=== PATIENT | male | born 1960 | race Hispanic/Latino ===

== ENCOUNTER 2021-09-28 11:29 | Emergency (ER) | payer MEDICARE ==
[2021-09-28] MEDS ORDERED: SODIUM CHLORIDE 0.9% 1000 ML 1,000 ML IV ONE (11:40)
--- NOTE | 2021-09-28 11:42 | Event Note ---
ED Screening Note ED Screening Note: co weakness and abd pain off insulin for 7 months This initial assessment/diagnostic orders/clinical plan/treatment(s) is/are subject to change based on patients health status, clinical progression and re- assessment by fellow clinical providers in the ED. Further treatment and workup at subsequent clinical providers discretion. Patient/guardian urged not to elope from the ED as their condition may be serious if not clinically assessed and managed. Initial orders include: ro dka infection acs
--- NOTE | 2021-09-28 12:10 | XRay Report ---
CHEST 1 VIEW INDICATION: weak. COMPARISON: None. FINDINGS: Support devices: None. Heart: Normal. Lungs/Pleura: No acute pulmonary or pleural findings. Healed posterior right upper rib fractures are noted. IMPRESSION: 1. No acute findings. Signer Name: Octavio Murillo MD Signed: 09/28/2021 12:06 PM Workstation Name: [id number]
[2021-09-28] MEDS ORDERED: ONDANSETRON 4 MG/2 ML INJ IV ONE (12:46)
[2021-09-28] MEDS ORDERED: fentaNYL 100 MCG/2 ML INJ IV ONE (12:46)
--- NOTE | 2021-09-28 12:51 | Emergency Department Report ---
HPI - General Chief Complaint: Hyperglycemia Time Seen by Provider: 09/28/21 12:35 - HPI HPI: Room 22 The patient is a 61-year-old male present with a chief complaint of abdominal pain back pain leg pain. Patient states he has had this pain for several years since he was diagnosed with cirrhosis. Patient is to nausea vomiting states his had difficulty eating because of his symptoms. Patient denies diarrhea or history of fever. Patient states he ran out of his insulin approximately 7 months ago has not had a refill. Patient admits to polyuria ED Past Medical Hx - Past Medical History Hx CVA: Yes (Residual left-sided weakness) Hx Diabetes: Yes Additional medical history: Cirrhosis - Surgical History Hx Cholecystectomy: Yes Additional Surgical History: Left hip replacement, left hand surgery - Family History Family history: no significant - Social History Smoking Status: Current Every Day Smoker (1/2 pack/day) Substance Use Type: None (Denies illicit drug use) - Medications Home Medications: Home Medications Medication Instructions Recorded Confirmed Last Taken Type HYDROcodone/APAP 5-325 [Holliday 1 - 2 each PO Q6HR PRN #10 tablet 09/28/21 Unknown Rx 5/325] Ondansetron [Zofran Oral Liq] 8 mg PO ONCE #20 oralsyr 09/28/21 Unknown Rx Pantoprazole Sodium [Protonix] 40 mg PO QDAY #30 09/28/21 Unknown Rx ED Review of Systems ROS: Stated complaint: ABDOMINAL PAIN/BODY PAIN Other details as noted in HPI Constitutional: denies: fever Eyes: denies: eye pain ENT: denies: throat pain Respiratory: no symptoms reported Cardiovascular: denies: chest pain Endocrine: increased urine Gastrointestinal: abdominal pain, nausea, vomiting. denies: diarrhea Genitourinary: denies: dysuria Musculoskeletal: back pain Neurological: denies: headache Physical Exam - Physical Exam Vital Signs: Vital Signs 09/28/21 09/28/21 11:38 11:55 Temperature 99 F Pulse Rate 70 Respiratory 16 Rate Blood Pressure 136/56 [Left] O2 Sat by Pulse 99 100 Oximetry Physical Exam: GENERAL: The patient is well-developed well-nourished male lying on stretcher not appearing to be in acute distress. [] HEENT: Normocephalic. Atraumatic. Extraocular motions are intact. Patient has moist mucous membranes. NECK: Supple. Trachea midline CHEST/LUNGS: Clear to auscultation. There is no respiratory distress noted. HEART/CARDIOVASCULAR: Regular. There is no tachycardia. There is no gallop rub or murmur. ABDOMEN: Abdomen is soft, with mild discomfort to palpation in the left lower quadrant, suprapubic and right lower quadrant. There is no rebound or guarding. Patient has normal bowel sounds. There is no abdominal distention. SKIN: There is no rash. There is no edema. There is no diaphoresis. NEURO: The patient is awake, alert, and oriented. The patient is cooperative. The patient has no focal neurologic deficits. The patient has normal speech. GCS 15 MUSCULOSKELETAL: There is no evidence of acute injury. ED Course Vital Signs 09/28/21 09/28/21 11:38 11:55 Temperature 99 F Pulse Rate 70 Respiratory 16 Rate Blood Pressure 136/56 [Left] O2 Sat by Pulse 99 100 Oximetry ED Medical Decision Making - Lab Data Result diagrams: 09/28/21 12:54 09/28/21 12:54 Laboratory Tests 09/28/21 09/28/21 09/28/21 12:54 12:54 12:54 WBC 5.9 RBC 3.75 Hgb 11.6 L Hct 33.8 L MCV 90 MCH 31 MCHC 34 RDW 15.6 H Plt Count 92 L Lymph % (Auto) 23.0 Delta % (Auto) 6.6 Eos % (Auto) 4.5 H Baso % (Auto) 0.8 Lymph # (Auto) 1.4 Delta # (Auto) 0.4 Eos # (Auto) 0.3 Baso # (Auto) 0.0 Seg Neutrophils % 65.1 Seg Neutrophils # 3.8 VBG pH Sodium 133 L Potassium 3.5 L Chloride 103.2 Carbon Dioxide 20 L Anion Gap 13 BUN 13 Creatinine 0.8 Estimated GFR > 60 BUN/Creatinine Ratio 16 Glucose 371 H Calcium 7.7 L Total Bilirubin 0.40 AST 57 H ALT 58 H Alkaline Phosphatase 160 H Troponin T < 0.010 Total Protein 6.6 Albumin 3.2 L Albumin/Globulin Ratio 0.9 Lipase 37 09/28/21 12:54 WBC RBC Hgb Hct MCV MCH MCHC RDW Plt Count Lymph % (Auto) Delta % (Auto) Eos % (Auto) Baso % (Auto) Lymph # (Auto) Delta # (Auto) Eos # (Auto) Baso # (Auto) Seg Neutrophils % Seg Neutrophils # VBG pH 7.396 Sodium Potassium Chloride Carbon Dioxide Anion Gap BUN Creatinine Estimated GFR BUN/Creatinine Ratio Glucose Calcium Total Bilirubin AST ALT Alkaline Phosphatase Troponin T Total Protein Albumin Albumin/Globulin Ratio Lipase - EKG Data -: EKG Interpreted by Me EKG shows normal: sinus rhythm Rate: normal - EKG Data When compared to previous EKG there are: previous EKG unavailable Interpretation: other (No ischemic changes seen) - Radiology Data Radiology results: report reviewed (Chest x-ray, CT abdomen pelvis), image reviewed (Chest x-ray, CT abdomen pelvis) interpreted by me: Chest x-ray-no definite focal infiltrates, no pneumothorax [address] [address] XRay Report Signed Patient: MOOK GATES MR#: [id number] : 1960 Acct:[id number] Age/Sex: 61 / M ADM Date: 09/28/21 Loc: ED Attending Dr: Ordering Physician: SURI CHAUDHARY Date of Service: 09/28/21 Procedure(s): XR chest 1V ap Accession Number(s): [id number] cc: SURI CHAUDHARY Fluoro Time In Minutes: CHEST 1 VIEW INDICATION: weak. COMPARISON: None. FINDINGS: Support devices: None. Heart: Normal. Lungs/Pleura: No acute pulmonary or pleural findings. Healed posterior right upper rib fractures are noted. IMPRESSION: 1. No acute findings. Signer Name: Octavio Murillo MD Signed: 09/28/2021 12:06 PM Workstation Name: [id number] Transcribed By: DINA Dictated By: Octavio Murillo MD Electronically Authenticated By: Octavio Murillo MD Signed Date/Time: 09/28/21 1206 DD/ 1205 TD/TT: [address] [address] Cat Scan Report Signed Patient: MOOK GATES MR#: [id number] : 1960 Acct:[id number] Age/Sex: 61 / M ADM Date: 09/28/21 Loc: ED Attending Dr: Ordering Physician: VALERY KENNEDY MD Date of Service: 09/28/21 Procedure(s): CT abdomen pelvis w con Accession Number(s): [id number] cc: VALERY KENNEDY MD CT ABDOMEN AND PELVIS WITH IV CONTRAST INDICATION: Lower abdominal pain OMNI 300 100 ML. COMPARISON: None available. TECHNIQUE: All CT scans at this facility use dose modulation, automated exposure control, iterative reconstruction or weight based dosing, when appropriate, to reduce radiation dose to as low as reasonably achievable. FINDINGS: Lung Bases: No significant abnormality. Skeletal System: No acute abnormality. ABDOMEN: Liver: The liver has a cirrhotic configuration. Branching hypodensity is seen within the anterior superior liver (coronal images 44-50). Gallbladder: Removed. Bile Ducts: No si gnificant abnormality. Adrenals: There is a 3.8 cm isodense left adrenal lesion. Right adrenal is unremarkable. Right Kidney: No significant abnormality. Left Kidney: No significant abnormality. Pancreas: No significant abnormality. Spleen: Splenomegaly. There are large perisplenic varices. Upper GI tract: No significant abnormality. Lymph Nodes: No significant adenopathy. Aorta: No significant abnormality. Additional Findings: There is a tiny fat-containing umbilical hernia. PELVIS: Colon: No significant abnormality. Urinary Bladder and Distal Ureters: Bladder is distended but otherwise unremarkable. Appendix: No significant abnormality. Lymph Nodes: No significant adenopathy. Additional Fi ndings: None. IMPRESSION: 1. No acute inflammatory process in the abdomen or pelvis. 2. Hepatic cirrhosis with splenomegaly and large perisplenic varices. No ascites. 3. Within the anterior superior liver there is branching hypodensity that is somewhat ill-defined. This is nonspecific but could be infiltrative lesion such as HCC. This could also be dilated vessels or bile ducts secondary to an occult lesion causing obstruction. 4. 3.8 cm left adrenal lesion. This is indeterminate. Given its size, surgical consultation should be considered. Signer Name: Octavio Murillo MD Signed: 09/28/2021 2:56 PM Workstation Name: [id number] Transcribed By: DINA Dictated By: Octavio Murillo MD Electronically Aut henticated By: Octavio Murillo MD Signed Date/Time: 09/28/21 1456 DD/ 1447 TD/TT: - Differential Diagnosis Chronic abdominal pain, pancreatitis, appendicitis, DKA Critical care attestation.: If time is entered above; I have spent that time in minutes in the direct care of this critically ill patient, excluding procedure time. ED Disposition Clinical Impression: Abdominal pain, Cirrhosis, Hyperglycemia Disposition: 01 HOME / SELF CARE / HOMELESS Is pt being admited?: No Does the pt Need Aspirin: No Condition: Stable Instructions: Abdominal Pain, Adult, [id number] Additional Instructions: Return to the emergency department should you develop worsening symptoms, inability to tolerate food or liquids, high fever or any other concerns Prescriptions: HYDROcodone/APAP 5-325 [Holliday 5/325] 1 - 2 each PO Q6HR PRN #10 tablet PRN Reason: Pain Pantoprazole Sodium [Protonix] 40 mg PO QDAY #30 Ondansetron [Zofran Oral Liq] 8 mg PO ONCE #20 oralsyr Referrals: ARIEL MIRELES MD [Staff Physician] - 3-5 Days (Dr. Mireles is a public policy analyst. Please follow-up with him for further evaluation of your liver) ELICIA GALAN MD [Staff Physician] - 3-5 Days (Dr. Galan is a primary physician. Please follow-up with him to be established as a patient) Time of Disposition: 15:09
[2021-09-28 13:26] LABS: Basophils % (Auto) 0.8 % (0.0-1.8); Eosinophils # (Auto) 0.3 K/mm3 (0.0-0.4); Eosinophils % (Auto) 4.5 % (0.0-4.3); Hematocrit 33.8 % (35.5-45.6); Hemoglobin 11.6 gm/dl (11.8-15.2); Lymphocytes # (Auto) 1.4 K/mm3 (1.2-5.4); Mean Corpuscular HGB Conc 34 % (32-34); Mean Corpuscular Volume 90 fl (84-94); Monocytes # (Auto) 0.4 K/mm3 (0.0-0.8); Monocytes % (Auto) 6.6 % (0.0-7.3); Red Blood Count 3.75 M/mm3 (3.65-5.03); Red Cell Distribution Width 15.6 % (13.2-15.2)
[2021-09-28 13:47] LABS: Alanine Aminotransferase 58 units/L (7-56); Albumin 3.2 g/dL (3.9-5); BUN/Creatinine Ratio 16; Blood Urea Nitrogen 13 mg/dL (9-20); Calcium 7.7 mg/dL (8.4-10.2); Hemolysis Index 4
[2021-09-28 14:07] LABS: Platelet Count 92 K/mm3 (140-440)
--- NOTE | 2021-09-28 15:01 | Cat Scan Report ---
CT ABDOMEN AND PELVIS WITH IV CONTRAST INDICATION: Lower abdominal pain OMNI 300 100 ML. COMPARISON: None available. TECHNIQUE: All CT scans at this facility use dose modulation, automated exposure control, iterative reconstructi on or weight based dosing, when appropriate, to reduce radiation dose to as low as reasonably achieva ble. FINDINGS: Lung Bases: No significant abnormality. Skeletal System: No acute abnormality. ABDOMEN: Liver: The liver has a cirrhotic configuration. Branching hypodensity is seen within the anterior sup erior liver (coronal images 44-50). Gallbladder: Removed. Bile Ducts: No significant abnormality. Adrenals: There is a 3.8 cm isodense left adrenal lesion. Right adrenal is unremarkable. Right Kidney: No significant abnormality. Left Kidney: No significant abnormality. Pancreas: No significant abnormality. Spleen: Splenomegaly. There are large perisplenic varices. Upper GI tract: No significant abnormality. Lymph Nodes: No significant adenopathy. Aorta: No significant abnormality. Additional Findings: There is a tiny fat-containing umbilical hernia. PELVIS: Colon: No significant abnormality. Urinary Bladder and Distal Ureters: Bladder is distended but otherwise unremarkable. Appendix: No significant abnormality. Lymph Nodes: No significant adenopathy. Additional Findings: None. IMPRESSION: 1. No acute inflammatory process in the abdomen or pelvis. 2. Hepatic cirrhosis with splenomegaly and large perisplenic varices. No ascites. 3. Within the anterior superior liver there is branching hypodensity that is somewhat ill-defined. Th is is nonspecific but could be infiltrative lesion such as HCC. This could also be dilated vessels or bile ducts secondary to an occult lesion causing obstruction. 4. 3.8 cm left adrenal lesion. This is indeterminate. Given its size, surgical consultation should be considered. Signer Name: Octavio Mruillo MD Signed: 09/28/2021 2:56 PM Workstation Name: [id number]
[2021-09-28 15:56] VITALS: BP 106/59
--- NOTE | 2021-09-29 10:36 | Electrocardiograph Report ---
[facility] Test Date: 2021-09-28 Test Time: 12:10:12 Pat Name: MOOK GATES Department: Room: Gender: M Supply Planner: SORAIDA : 1960 Requested By: SURI CHAUDHARY Order Number: [id number] Reading MD: Pj Maher Measurements Intervals [place] Rate: 66 P: 56 DE: 162 QRS: 61 QRSD: 104 T: 34 QT: 425 QTc: 444 Interpretive Statements Sinus rhythm No previous ECG available for comparison Electronically Signed On 09-29-2021 10:35:39 EDT by Pj Maher
== END 2021-09-28 17:53 | disposition home or self-care (01) ==
LOC: ED 11:29
DX: R10.9 Unspecified abdominal pain (principal); K74.60 Unspecified cirrhosis of liver; E11.65 Type 2 diabetes mellitus with hyperglycemia; F17.200 Nicotine dependence, unspecified, uncomplicated
CPT/HCPCS: 36415; 71045; 74177; 80053; 82010; 82805; 82962; 83690; 84484; 85025; 93005; 96361; 96374; 96375; 99285; J2405; J3010; J7030; Q9967; Q0162